=== PATIENT | female | born 1965 | race Caucasian/White ===

== ENCOUNTER 2021-06-20 13:28 | Observation (INO) ==
[2021-06-20 14:21] LABS: Basophils % 0.3 %; Eosinophils # 0.1 K/mcL (0.0-0.6); Eosinophils % 0.9 %; Hematocrit 44.1 % (35.3-44.9); Hemoglobin 14.6 g/dL (11.5-15.4); Immature Granulocytes % 0.1 % (0-4); Lymphocytes # 1.8 K/mcL (0.6-4.6); Lymphocytes % 22.9 %; Mean Corpuscular HGB Conc 33.1 g/dL (31.6-35.5); Mean Corpuscular Hemoglobin 29.8 pg (28.0-33.3); Mean Platelet Volume 9.8 fL (9.4-12.4); Monocytes # 0.5 K/mcL (0.0-1.3); Monocytes % 6.3 %; Neutrophils # 5.3 K/mcL (1.6-8.9); Platelet Count 321 K/mcL (140-400); Red Cell Distribution Width 11.9 % (11.5-14.5); Segmented Neutrophils % 69.5 %; White Blood Count 7.7 K/mcL (4.3-11.1)
[2021-06-20 14:40] LABS: Acetaminophen < 10 mcg/mL (10-20); Alanine Aminotransferase 19 Units/L (7-52); Albumin 4.4 g/dL (3.5-5.7); Albumin/Globulin Ratio 1.4 (1.1-2.2); Alkaline Phosphatase 100 Units/L (34-104); Aspartate Amino Transferase 19 Units/L (13-39); BUN/Creatinine Ratio 19 (6-26); Bilirubin,Direct 0.1 mg/dL (0.0-0.2); Bilirubin,Indirect 0.3 mg/dL (0.0-1.0); Bilirubin,Total 0.4 mg/dL (0.3-1.0); Blood Urea Nitrogen 17 mg/dL (6-20); Calcium 9.3 mg/dL (8.6-10.3); Carbon Dioxide 22 mEq/L (23-29); Chloride 110 mEq/L (98-107); Chol/HDL Ratio 3.5 (0-4.9); Cholesterol 239 mg/dL (< 200); Ethanol < 10 mg/dL (Less than 10); Globulin 3.1 g/dL (2.4-3.5); Glucose 97 mg/dL (70-105); HDL Cholesterol 69 mg/dL (40-59); LDL Cholesterol,Calculated 149 mg/dL (< 100); Osmolality,Calculated 293 (280-300); Potassium 4.2 mEq/L (3.5-5.1); Salicylate < 2.5 mg/dL (15.0-30.0); Sodium 141 mEq/L (136-145); Total Protein 7.5 g/dL (6.4-8.9); Triglycerides 107 mg/dL (< 150); eGFR For African Americans > 60 (> 60); eGFR For Non-African Americans > 60 (> 60)
[2021-06-20 14:52] LABS: Thyroid Stimulating Hormone 0.903 mcIU/mL (0.340-5.600)
[2021-06-20 15:31] LABS: Bilirubin,Urine Negative (Negative); Blood,Urine Negative (Negative); Calcium Oxalate Crystals,Urine Present per hpf; Clarity,Urine Clear (Clear); Color,Urine Yellow (Yellow); Glucose,Urine (UA) Normal (Normal); Ketones,Urine Negative (Negative); Leukocyte Esterase,Urine Negative (Negative); Mucus,Urine Many per lpf (None-Few); Nitrite,Urine Negative (Negative); Protein,Urine 30 mg/dL (Neg-Trace); RBC,Urine 0-3 per hpf (0-3); Specific Gravity,Urine > 1.030 (1.010-1.025); WBC,Urine 0-3 per hpf (0-3)
[2021-06-20 15:42] LABS: Amphetamine Screen,Urine Negative ng/mL (Cutoff=1000); Barbiturate Screen,Urine Negative ng/mL (Cutoff=200); Benzodiazepines Screen,Urine Negative ng/mL (Cutoff=200); Cannabinoid Screen,Urine Negative ng/mL (Cutoff = 50); Cocaine Screen,Urine Negative ng/mL (Cutoff= 300); Opiate Screen,Urine Negative ng/mL (Cutoff=300); Phencyclidine Screen,Urine Negative ng/mL (Cutoff=25)
[2021-06-20 16:15] LABS: Estimated Average Glucose 111 mg/dl; Hemoglobin A1C 5.5 %
[2021-06-20 19:36] LABS: Influenza A PCR Negative (Negative); Influenza B PCR Negative (Negative); Resp. Syncytial Virus PCR Negative (Negative)
[2021-06-20 19:37] LABS: SARS-CoV-2 by PCR (In House) Negative (Negative)
[2021-06-20] MEDS ORDERED: *HR* LORazepam 2 MG/ML VIAL IM PRN (21:10)
[2021-06-20] MEDS ORDERED: Ibuprofen 400 MG TABLET PO PRN (21:10)
[2021-06-20] MEDS ORDERED: Haloperidol Lactate 5 MG/ML VIAL IM PRN (21:10)
[2021-06-20] MEDS ORDERED: hydrOXYzine pamoate 25 MG CAPSULE PO PRN (21:10)
[2021-06-20] MEDS ORDERED: *HR* LORazepam 1 MG TABLET PO PRN (21:10)
[2021-06-20] MEDS ORDERED: haloperidoL 5 MG TABLET PO PRN (21:10)
[2021-06-20] MEDS ORDERED: traZODone 50 MG TABLET PO PRN (21:10)
[2021-06-21] MEDS ORDERED: Topiramate 25 MG TABLET PO SCH (09:00)
[2021-06-21 10:54] VITALS: BP 103/66; PULSE 73; TEMP 98; O2SAT 98
== END 2021-06-21 13:35 | disposition home or self-care (01) ==
LOC: EMEROOARM 13:28 → 1ANU 13:28
PROVIDERS: ADMIT Psychiatry & Neurology Forensic Psychiatry; ATTEND Psychiatry & Neurology Forensic Psychiatry